=== PATIENT | female | born 1980 | race Caucasian/White ===

== ENCOUNTER 2017-07-16 07:55 | Emergency (ER) | payer BC ==
--- NOTE | 2017-07-16 08:21 | ER Document Report ---
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 She has done this before but she felt a few twinges on the left side while she was doing the inventory. No saddle anesthesia or radiculopathy. No fever. No IV drug use. No dysuria frequency urgency Associated Symptoms: None Exacerbated by: Movement Relieved by: Denies - ROS ROS below otherwise negative: Yes Systems Reviewed and Negative: Yes All other systems reviewed and negative - REPRODUCTIVE LMP: hyst Reproductive: DENIES: : Past Medical History - General Information source: Patient - Social History Smoking Status: Current Every Day Smoker Frequency of alcohol use: None Drug Abuse: None Lives with: Family Family History: Reviewed & Not Pertinent - Past Medical History Cardiac Medical History: Reports: Hx Hypertension Endocrine Medical History: Reports: Hx Diabetes Mellitus Type 2 - metabolic syndrome Musculoskeltal Medical History: Denies Hx Arthritis Past Surgical History: Reports: Hx Cholecystectomy, Hx Hysterectomy - Immunizations Hx Diphtheria, Pertussis, Tetanus Vaccination: Yes Vertical Provider Document - CONSTITUTIONAL Agree With Documented VS: Yes General Appearance: No Apparent Distress - INFECTION CONTROL TRAVEL OUTSIDE OF THE [place] IN LAST 30 DAYS: No - HEENT HEENT: Normocephalic - NECK Neck: Supple - RESPIRATORY Respiratory: Breath Sounds Normal, No Respiratory Distress O2 Sat by Pulse Oximetry: 96 - CARDIOVASCULAR Cardiovascular: Regular Rate, Regular Rhythm - GI/ABDOMEN Gastrointestinal: Abdomen Soft, Abdomen Non-Tender, No Organomegaly - REPRODUCTIVE Female Genitalia: Normal Inspection - MUSCULOSKELETAL/EXTREMETIES Musculoskeletal/Extremeties: MAEW, FROM, Tender - left lumbar paraspinal muscles - NEURO Level of Consciousness: Awake, Alert Motor/Sensory: No Motor Deficit, No Sensory Deficit Deep Tendon Reflexes: 2+ - Bilateral ankle and patellar Course - Vital Signs Vital signs: Temp Pulse Resp BP Pulse Ox 98.7 F 82 14 136/78 H 96 07/16/17 08:00 07/16/17 08:00 07/16/17 08:00 07/16/17 08:00 07/16/17 08:00 Discharge - Discharge Clinical Impression: Left low back strain Condition: Good Disposition: HOME, SELF-CARE Instructions: Acetaminophen, Anti-Inflammatory Medication ([facility]), Low Back Pain ([facility]), Muscle Relaxers ([facility]), Muscle Strain ([facility]), Warm Packs ([facility]) Additional Instructions: warm compress see your doctor if persists to er if worse tylenol motrin flexeril-muscle relaxer Prescriptions: Ibuprofen [Motrin 800 mg Tablet] 800 mg PO Q8HP PRN #30 tablet PRN Reason: Cyclobenzaprine HCl [Flexeril 10 Mg Tablet] 10 mg PO TIDP PRN #20 tablet PRN Reason: Forms: Return to Work Referrals: EZRA HUSSEIN MD [ACTIVE STAFF] - Follow up as needed
[2017-07-16 09:03] VITALS: BP 133/77
== END 2017-07-16 09:09 | disposition home or self-care (01) ==
LOC: ER 07:55
DX: S39.012A Strain of muscle, fascia and tendon of lower back, initial encounter (principal); X50.3XXA Overexertion from repetitive movements, initial encounter; Y99.0 Civilian activity done for income or pay; F17.200 Nicotine dependence, unspecified, uncomplicated
CPT/HCPCS: 99283